=== PATIENT | male | born 1990 | race Caucasian/White ===

== ENCOUNTER 2017-07-15 15:33 | Emergency (ER) | payer BC ==
[2017-07-15 15:43] VITALS: BP 130/72
--- NOTE | 2017-07-15 16:10 | ERNOTE ---
Integumentary HPI - General Presenting Symptoms: rash Time Seen by Provider: 07/15/17 15:59 Exam Limitations: no limitations - Immun/Allergies/Home Medications Immunizations: IMMUNIZATION HX Immunizations Up to Date Yes History of Influenza Vaccine No Allergies/Adverse Reactions: Allergies Allergy/AdvReac Type Severity Reaction Status Date / Time No Known Allergies Allergy Verified 07/15/17 15:42 Home Medications: HOME MEDICATIONS predniSONE [Prednisone] 3 tab PO DAILY #15 tab 07/15/17 [Last Taken Unknown] - History of Present Illness Narrative: Patient works with a [employer], over the last 2-3 days he noticed a rash mainly on his arms, some on his trunk, and around his left eye, denies any other symptoms He also has a history of intermittent back pain aggravated recently by cutting trees, no acute injury, is taking ibuprofen Location: Reports: torso, upper extremity Quality: Reports: itching Modifying Factors - (Improves): Reports: antihistamine Associated Symptoms: Reports: denies symptoms Review of Systems - Review of Systems Constitutional: Absent: recent illness, fever ENT: Absent: nasal drainage, sore throat Respiratory: Absent: shortness of breath Cardiology: Absent: chest pain Gastrointestinal/Abdominal: Absent: nausea, abdominal pain Genitourinary: Present: no symptoms reported Musculoskeletal: Present: back pain - intermittent Skin: Present: See HPI Neurological: Present: no symptoms reported - Patient's Past Medical History Patient History - Medical: No pertinent hx Patient History - Cardiac/Respiratory: No pertinent hx Patient History - Cancer: No Hx of Cancer Patient History - Surgical Procedures: No surgical history - Family History Mother Family History - Medical: No pertinent hx Father Family History - Medical: No pertinent hx - Social History Living Situations: home Smoking Status: Current every day smoker Have you smoked in the past 12 months: Yes Alcohol Use: rarely Drug Use: none - Immunizations Immunizations Up to Date: Yes History of Influenza Vaccine: No Physical Exam - Physical Exam General Appearance: Present: wd/wn, alert, no apparent distress Ears, Nose, Throat: Present: normal pharynx Respiratory: Present: no respiratory distress, normal breath sounds, lungs clear Cardiovascular/Chest: Present: regular rate, rhythm Neurological Exam: Present: alert, oriented, normal mood/affect Skin Exam: Present: normal color, warm/dry, skin rash - hive like, few vesicles ED Progress - Vital Signs Patient's Vital Signs:: I have reviewed the patient's vital signs. Vital Signs: Vital Signs 07/15/17 15:35 Temperature 36.7 C Pulse Rate 82 Respiratory 14 Rate Blood Pressure 130/72 O2 Sat by Pulse 100 Oximetry - Progress/Reassessment Chief Complaint: Rash Departure Clinical Impression: Poison debby dermatitis - Departure Disposition: Home self-care Condition: Good Instructions: Poison Debby Dermatitis, [id number] Additional Instructions: continue to take the ibuprofen for your back pain try over the counter poison debby washes like zanafel or technu call the physicians clinic for a follow up appointment as needed Referrals: Jodie Zepeda MD [Staff Physician] - Prescriptions: predniSONE [Prednisone] 3 tab PO DAILY #15 tab
== END 2017-07-15 16:12 | disposition home or self-care (01) ==
LOC: ER 15:33
DX: L23.7 Allergic contact dermatitis due to plants, except food (principal); F17.200 Nicotine dependence, unspecified, uncomplicated